=== PATIENT | female | born 1975 ===

== ENCOUNTER 2018-10-30 14:27 | Emergency (ER) | payer BC ==
[2018-10-30 15:47] VITALS: O2SAT 98; BMI 29.2
[2018-10-30] MEDS ORDERED: Albuterol-Ipratrop 3 mg / 0.5 (3 ml) UD IH STA (16:26)
--- NOTE | 2018-10-30 16:38 | ED PDOC ---
Arrival/HPI - General Chief Complaint: Cough, Cold, Congestion Time Seen by Provider: 10/30/18 14:40 Historian: Patient - History of Present Illness Narrative History of Present Illness (Text): 10/30/18 16:25 43 y/o F, with no significant past medical history, presents to the ED for evaluation of sore throat, productive cough and chest tightness since 3 days. Patient informs recent sick contact with coworker diagnosed with bronchitis. Patient informs subjective chills but denies any other somatic complaints. Patient denies any fevers, headache, dizziness, shortness of breath,dyspnea on exertion, abdominal pain, nausea, vomiting, diarrhea, back pain, neck pain, or any other complaints. Time/Duration: < week Symptom Onset: Gradual Symptom Course: Unchanged Activities at Onset: Light Context: Home Past Medical History - Provider Review Nursing Documentation Reviewed: Yes - Reproductive Menopause: No Currently : No - Psychiatric Hx Substance Use: No Family/Social History - Physician Review Nursing Documentation Reviewed: Yes Family/Social History: No Known Family HX Smoking Status: Never Smoked Hx Alcohol Use: No Frequency of alcohol use: Socially Hx Substance Use: No Allergies/Home Meds Allergies/Adverse Reactions: Allergies No Known Allergies Allergy (Verified 10/30/18 16:08) Review of Systems - Physician Review All systems were reviewed & negative as marked: Yes - Review of Systems Constitutional: absent: Fevers ENT: Sore Throat Respiratory: Cough. absent: SOB Cardiovascular: Other (Chest tightness). absent: Chest Pain Gastrointestinal: absent: Abdominal Pain, Diarrhea, Nausea, Vomiting Genitourinary Female: absent: Dysuria, Urine Output Changes Musculoskeletal: absent: Back Pain, Neck Pain Skin: absent: Rash Neurological: absent: Headache, Dizziness Physical Exam Vital Signs Reviewed: Yes Vital Signs Temp Pulse Resp BP Pulse Ox 10/30/18 15:41 99.0 F 108 H 18 123/86 98 Temperature: Afebrile Blood Pressure: Normal Pulse: Tachycardic Respiratory Rate: Normal Appearance: Positive for: Well-Appearing, Non-Toxic, Comfortable Pain Distress: None Mental Status: Positive for: Alert and Oriented X 3 - Systems Exam Head: Present: Atraumatic, Normocephalic Pupils: Present: PERRL Extroacular Muscles: Present: EOMI Conjunctiva: Present: Normal Mouth: Present: Moist Mucous Membranes Pharnyx: Present: ERYTHEMA (Soft Palate ). No: TONSILS ENLARGED Neck: Present: Normal Range of Motion Respiratory/Chest: Present: Good Air Exchange, Other (Coarse breath sounds ). No: Respiratory Distress, Accessory Muscle Use Cardiovascular: Present: Regular Rate and Rhythm, Normal S1, S2. No: Murmurs Abdomen: No: Tenderness, Distention, Peritoneal Signs Back: Present: Normal Inspection Upper Extremity: Present: Normal Inspection. No: Cyanosis, Edema Lower Extremity: Present: Normal Inspection. No: Edema Neurological: Present: GCS=15, Speech Normal Skin: Present: Warm, Dry, Normal Color. No: Rashes Psychiatric: Present: Alert, Oriented x 3, Normal Insight, Normal Concentration Medical Decision Making ED Course and Treatment: 10/30/18 16:26 Impression: 43 year old female presents to the ED for evaluation of sore throat, productive cough, and chest tightness. Differential Diagnosis included but are not limited to: -- Strep Throat -- Bronchitis -- Viral pharyngitis -- Influenza Plan: -- Albuterol -- Solumedrol -- Infleunza A/B -- Rapid Strep --Tamiflu -- Reassess and disposition Prior Visits: Notes and results from previous visits were reviewed. Progress Notes: 10/30/18 18:50 Rapid influenza swab positive for influenza A. Patient updated on findings and will be given Tamiflu. She is advised to take a few days off and avoid contact of her respiratory secretions with others. She demonstrates understanding and will follow up. Scripts provided and questions answered. Return protocol given. She is stable for discharge. - Lab Interpretations Lab Results: Lab Results 10/30/18 16:25: Influenza Typ A,B (EIA) Pos for influenza a H, Grp A Beta Strep Ag Negative I have reviewed the lab results: Yes - Medication Orders Current Medication Orders: Discontinued Medications Albuterol/Ipratropium (Duoneb 3 Mg/0.5 Mg (3 Ml) Ud) 3 ml IH STAT STA Stop: 10/30/18 16:27 Prednisone (Prednisone Tab) 60 mg PO STAT ONE Stop: 10/30/18 16:27 - Scribe Statement The provider has reviewed the documentation as recorded by the Scribe Te Brown. All medical record entries made by the Scribe were at my direction and personally dictated by me. I have reviewed the chart and agree that the record accurately reflects my personal performance of the history, physical exam, medical decision making, and the department course for this patient. I have also personally directed, reviewed, and agree with the discharge instructions and disposition. Disposition/Present on Arrival - Present on Arrival Any Indicators Present on Arrival: No History of DVT/PE: No History of Uncontrolled Diabetes: No Urinary Catheter: No History of Decub. Ulcer: No History Surgical Site Infection Following: None - Disposition Have Diagnosis and Disposition been Completed?: Yes Diagnosis: Influenza A Disposition: HOME/ ROUTINE Disposition Time: 17:13 Patient Plan: Discharge Condition: FAIR Discharge Instructions (ExitCare): Flu, Adult (DC) Print Language: TRINIDADIAN Additional Instructions: All medical record entries made by the Scribe were at my direction and personally dictated by me. I have reviewed the chart and agree that the record accurately reflects my personal performance of the history, physical exam, medical decision making, and the department course for this patient. I have also personally directed, reviewed, and agree with the discharge instructions and disposition. Please take medication as prescribed Follow up with your PCP after 3-5 days Keep respiratory secretions confined to oneself and remember to keep hydrated Prescriptions: Oseltamivir Cap [Tamiflu] 75 mg PO BID #10 cap Referrals: Tamela Galvez MD [Medical Doctor] - Follow up with primary [facility] [place] [Outside] - Follow up with primary Forms: [facility] (Austrian), WORK NOTE
[2018-10-30 17:05] LABS: INFLUENZA A B POS FOR INFLUENZA A (NEGATIVE)
[2018-10-30 17:29] VITALS: BP 127/68; PULSE 89; RESP 24; TEMP 98.3
== END 2018-10-30 17:27 | disposition home or self-care (01) ==
LOC: ED 14:27
DX: J10.1 Influenza due to other identified influenza virus with other respiratory manifestations (principal)